=== PATIENT | male | born 1980 | race Caucasian/White ===

== ENCOUNTER 2021-05-09 06:28 | Emergency (ER) | payer BC ==
[2021-05-09 06:36] VITALS: BP 140/88; PULSE 86; RESP 18; TEMP 98.4
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
[2021-05-09] MEDS ORDERED: BACITRACIN OINT 1 EACH PACKET TOPICAL ONE (06:51)
[2021-05-09] MEDS ORDERED: DIPH,PERTUS(ACELL)TETVAC-LF 0.5 ML VIAL IM ONE (06:58)
[2021-05-09 22:58] LABS: Hepatitis B Surface Antibody NonReactive (Nonreactive); Hepatitis B Surface Antigen Nonreactive (Nonreactive); Hepatitis C IgG Antibody Nonreactive (Nonreactive)
[2021-05-12 01:57] LABS: HIV 2 AB Non-Reactive (Non-Reactive); HIV AB P24 Non-Reactive (Non-Reactive); HIV P24 AG Non-Reactive (Non-Reactive)
== END 2021-05-09 07:10 | disposition home or self-care (01) ==
LOC: EC 06:28
DX: S00.81XA Abrasion of other part of head, initial encounter (principal); S10.91XA Abrasion of unspecified part of neck, initial encounter; I10 Essential (primary) hypertension; Z79.899 Other long term (current) drug therapy; Z23 Encounter for immunization; Y04.8XXA Assault by other bodily force, initial encounter
CPT/HCPCS: 36415; 86706; 86803; 87340; 87390; 90471; 90715; 99284

== ENCOUNTER → 2022-10-27 | Day surgery (SDC) | payer BC ==
[2022-10-21 15:25] VITALS: BMI 38.7
--- NOTE | 2022-10-25 13:33 | P.HPOR ---
History of Present Illness H&P Date: 10/25/22 Chief Complaint: Right middle finger foreign body Subjective: This is a 42 year old male that presents today for initial evaluation regarding a 6 month history of a right middle finger lump on the pad of the tip of his finger. He denies any inciting event or injury. He states he can feel the lump at the tip of the finger and it's uncomfortable with any type of pressure. He denies any pain at rest and denies any other areas of issue. He works as a [employer] officer. Physical Examination: RUE: AIN/PIN/Radial/Ulnar/Median motor intact. Radial/Ulnar/Median SILT. 2+/4 Radial/Ulnar pulses palpated. 5/5 APB, 5/5 FDI. Negative Finkelsteins, negative CMC grind, negative Durkan's compression. 2mm firm round mass felt in tip of the right middle finger in the volar pulp with discomfort upon palpation. FDP/FDS intact. Imaging: X-Rays of the right middle finger reviewed from prior ED visit demonstrate no acute abnormality Impression: 1.) Right middle finger foreign body vs soft tissue mass. Plan: Diagnosis and treatment options were discussed with the patient. The prominence in the volar pulp of the middle finger is becoming an increasing annoyance and he would like to pursue surgery for right middle finger mass vs foreign body excision. Risks and benefits of surgery including bleeding, infection, damage to surrounding tissue, need for further surgery, residual numbness were discussed and the patient wished to go forward with surgery. The patient is agreeable with this plan. -Javier Cunningham DO Orthopedic Hand/Upper Extremity Surgeon Past Medical History Past Medical History: Hypertension Additional Past Medical History / Comment(s): herniated discs, current back pain- states he "put his back out" and currently on pain meds & prednisone., foreign body right middle finger tip. History of Any Multi-Drug Resistant Organisms: None Reported Past Surgical History: Orthopedic Surgery Additional Past Surgical History / Comment(s): anal fissure, elbow surgery. Past Anesthesia/Blood Transfusion Reactions: Previous Problems w/ Anesthesia, Postoperative Nausea & Vomiting (PONV) Past Psychological History: No Psychological Hx Reported Smoking Status: Never smoker Past Alcohol Use History: None Reported Past Drug Use History: None Reported Medications and Allergies Home Medications Medication Instructions Recorded Confirmed Type Baclofen 10 mg PO TID 03/16/23 03/16/23 History HYDROcodone/APAP 10-325MG [[place] 1 tab PO BID PRN 10/21/22 10/21/22 History 10-325] lisinopriL [Zestril] 20 mg PO DAILY 10/21/22 10/21/22 History polyethylene glycoL 3350 [Miralax] 1 dose PO DAILY PRN 10/21/22 10/21/22 History predniSONE 10 mg PO DAILY 10/21/22 10/21/22 History Allergies Allergy/AdvReac Type Severity Reaction Status Date / Time NSAIDS (Non-Steroidal Allergy Anaphylaxis Verified 10/21/22 14:55 Anti-Inflamma Penicillins Allergy Unknown Verified 10/21/22 14:55 Childhood Physical Examination Osteopathic Statement: *. No significant issues noted on an osteopathic structural exam other than those noted in the History and Physical/Consult.
[~2022-10-27] MED LIST: BUPIVACAINE (PF) 0.5% 30 ML VIAL SQ ONE; LACTATED RINGERS 1,000 ML IV ONE; LACTATED RINGERS 1,000 ML IV SCH; LIDOCAINE 1% (10MG/ML) FOR IV START INTRADERMA PRN; LIDOCAINE 1% INJ 10MG/ML (20 ML MDV) SQ ONE; LIDOCAINE 2% INJ 20 MG/ML (2 ML VIAL) ONE; MIDAZOLAM 2 MG/2 ML VIAL ONE; PROPOFOL 10 MG/ML 20 ML VIAL IV ONE; ceFAZolin 3 GM in SODIUM CHLORIDE 0.9% 100 ML IVPB PRN; fentaNYL (PF) 50 MCG/ML 2 ML AMP ONE
[2022-10-27 10:55] VITALS: TEMP 97.2
[2022-10-27 11:14] LABS: Glucose,Whole Blood 89 mg/dL (70-110)
[2022-10-27 12:23] VITALS: RESP 16
--- NOTE | 2022-10-27 12:24 | P.OP ---
Date of Procedure: 10/27/22 Preoperative Diagnosis: Right middle finger foreign body vs soft tissue mass Postoperative Diagnosis: Right middle finger soft tissue mass 3x3mm Procedure(s) Performed: Right middle finger soft tissue mass excision, subfascial 3x3mm Anesthesia: MAC Surgeon: Javier Cunningham Mental Health Technician #1: Nicola Sumner Estimated Blood Loss (ml): 0 Pathology: other (Right middle finger soft tissue mass) Condition: stable Disposition: PACU Description of Procedure: This is a 42 year old male who presents today for a right middle finger foreign body removal for a symptomatic foreign body that was causing pain and sensitivity at the tip of the finger. Risks and benefits of surgery were discussed with the patient including bleeding, damage to surrounding tissue, infection, need for further surgery as well as risks of anesthesia including pulmonary embolism and even and the patient wished to proceed with surgical intervention. The patient was seen in the pre-operative area by myself. Consent and H&P were completed and updated. The correct extremity was marked in the pre-operative area by myself and all other questions were answered. Operative Narrative: The patient was brought to the operating room by the department of anesthesia . They remained on the portable stretcher and a rolling hand table was brought to the side of the operative extremity. Pre-operative time out was performed indicating the correct patient, procedure and laterality. All in the room agreed. Pre-operative antibiotics were given prior to skin incision. The patient was then drifted off to sleep by the department of anesthesia. Digital block was performed with 5cc's of 0.5% Lidocaine and 1% lidocaine in a 50:50 mixture. A nonsterile tourniquet was then applied to the operative extremity and the right upper extremity was then prepped and draped in normal sterile fashion. The operative extremity was the exsanguinated with an esmarch bandage and the tourniquet was inflated to 250mmHg. Longitudinial incision was made over the volar tip of the middle finger over the area of the palpable mass. Blunt dissection was taken down through subcutaneous tissues. A 3x3mm multilobulated fibrous soft tissue mass was identified at the volar surface of the distal phalanx. This was sitting directly underneath a terminal branch of the radial digital nerve at the hyponychial fold, the nerve appeared irritated around this mass. The mass was carefully excised and sent for pathology while protecting the branch of the nerve. Closure was performed with 4-0 nylon suture. Sterile dressing consisting of adaptic, 4x4s and a coban was applied. Tourniquet was let down and the hand had immediate perfusion. The patient was then woken by the department of anesthesia and transferred to PACU in stable condition. Nicola SKY was present for the case to assist in major portions of the procedure. Javier Cunningham D.O. Orthopedic Hand/Upper Extremity Surgeon
[2022-10-27 12:59] VITALS: BP 116/78; PULSE 82
== END | disposition home or self-care (01) ==
LOC: OR 10:36
PROVIDERS: ATTEND Orthopaedic Surgery Hand Surgery
DX: S60.452A Superficial foreign body of right middle finger, initial encounter (principal); I10 Essential (primary) hypertension; Z87.09 Personal history of other diseases of the respiratory system; Z87.19 Personal history of other diseases of the digestive system; Z79.52 Long term (current) use of systemic steroids; Z79.899 Other long term (current) drug therapy; Z88.6 Allergy status to analgesic agent; Z88.0 Allergy status to penicillin; X58.XXXA Exposure to other specified factors, initial encounter
CPT/HCPCS: 26115; 88305; J2250; J2001 ×2; J3010; J2704

== ENCOUNTER 2023-08-04 10:33 | Observation (INO) | payer BC ==
[2023-08-04 12:37] LABS: Basophils # (A) 0.1 k/uL (0-0.2); Basophils % (A) 1 %; Eosinophils # (A) 0.4 k/uL (0-0.7); Eosinophils % (A) 5 %; HCT 52.6 % (39.0-53.0); HGB 18.2 gm/dL (13.0-17.5); Lymphocytes # (A) 1.8 k/uL (1.0-4.8); Lymphocytes % (A) 25 %; MCH 29.9 pg (25.0-35.0); MCHC 34.6 g/dL (31.0-37.0); MCV 86.2 fL (80.0-100.0); Mean Platelet Volume 9.5; Monocytes # (A) 0.5 k/uL (0-1.0); Monocytes % (A) 7 %; Neutrophils # (A) 4.4 k/uL (1.3-7.7); Neutrophils % (A) 61 %; Platelet Count 154 k/uL (150-450); RBC 6.09 m/uL (4.30-5.90); RDW 13.8 % (11.5-15.5); WBC 7.3 k/uL (3.8-10.6)
--- NOTE | 2023-08-04 12:43 | ED ---
Arrhythmia/Palpitations HPI - General Source: patient Mode of arrival: ambulatory Limitations: no limitations <Dago Harrison - Last Filed: 08/04/23 12:44> <Nikhil Victor - Last Filed: 08/04/23 19:45> - General Chief Complaint: Arrhythmia/Palpitations Stated Complaint: Palpitations Time Seen by Provider: 08/04/23 12:34 - History of Present Illness Initial Comments: 43-year-old male with a past medical history significant for hypertension presenting to the ED with a chief complaint of palpitations. Patient states he returned from work this morning around 7 AM when he went to lay down he started to experience palpitations. Reports that at onset initially felt short of breath, lightheaded, nauseous, and sweaty and noted this sensation only lasted for a few minutes reports ongoing palpitations. Currently denies chest pain or shortness of breath. (Dago Harrison) - Related Data Home Medications Medication Instructions Recorded Confirmed lisinopriL [Zestril] 20 mg PO DAILY 10/21/22 08/04/23 Acetaminophen Tab [Tylenol Tab] 1,000 mg PO Q6HR PRN 08/04/23 08/04/23 Gabapentin [Neurontin] 300 mg PO BID PRN 08/04/23 08/04/23 Turmeric Root Extract [Turmeric 500 mg PO DAILY PRN 08/04/23 08/04/23 Curcumin] Allergies Allergy/AdvReac Type Severity Reaction Status Date / Time NSAIDS (Non-Steroidal Allergy Anaphylaxis Verified 08/04/23 14:27 Anti-Inflamma Penicillins Allergy Unknown Verified 08/04/23 14:27 Childhood Review of Systems ROS Other: All systems not noted in ROS Statement are negative. <Dago Harrison - Last Filed: 08/04/23 12:44> ROS Other: All systems not noted in ROS Statement are negative. <Nikhil Victor - Last Filed: 08/04/23 19:45> ROS Statement: Those systems with pertinent positive or pertinent negative responses have been documented in the HPI. Past Medical History Past Medical History: Hypertension Additional Past Medical History / Comment(s): back pain History of Any Multi-Drug Resistant Organisms: None Reported Past Surgical History: Orthopedic Surgery Additional Past Surgical History / Comment(s): anal fissure elbow Past Anesthesia/Blood Transfusion Reactions: Previous Problems w/ Anesthesia, Postoperative Nausea & Vomiting (PONV) Past Psychological History: No Psychological Hx Reported Smoking Status: Never smoker Past Alcohol Use History: Rare <Dago Harrison - Last Filed: 08/04/23 12:44> General Exam Limitations: no limitations <Dago Harrison - Last Filed: 08/04/23 12:44> General appearance: alert, in no apparent distress Head exam: Present: atraumatic, normocephalic Eye exam: Present: normal appearance, PERRL ENT exam: Present: normal exam Neck exam: Present: normal inspection. Absent: tenderness, meningismus Respiratory exam: Present: normal lung sounds bilaterally. Absent: respiratory distress Cardiovascular Exam: Present: tachycardia, irregular rhythm GI/Abdominal exam: Present: soft. Absent: distended, tenderness Extremities exam: Present: normal inspection, normal capillary refill. Absent: pedal edema, calf tenderness Neurological exam: Present: alert, oriented X3 Psychiatric exam: Present: normal affect, normal mood Skin exam: Present: warm, dry, intact. Absent: cyanosis, diaphoretic <Nikhil Victor Deacon - Last Filed: 08/04/23 19:45> - General Exam Comments Initial Comments: Physical Exam Vital signs reviewed General: Well-appearing, nontoxic, no acute distress. Head: Normocephalic, atraumatic Eyes: PERRLA, EOMI ENT: Airway patent Chest: Nonlabored breathing. CV: Tachycardia Skin: No visual rash, normal skin tone Neuro: Alert and oriented 3 Musculoskeletal: No gross abnormalities (Dago Harrison) Course Vital Signs 08/04/23 08/04/23 08/04/23 11:25 13:30 14:15 Temperature 98 F Pulse Rate 72 168 H 120 H Respiratory 18 18 18 Rate Blood Pressure 135/90 114/98 114/98 O2 Sat by Pulse 98 98 Oximetry 08/04/23 08/04/23 08/04/23 15:00 16:00 17:00 Temperature Pulse Rate 126 H 112 H 112 H Respiratory 18 18 20 Rate Blood Pressure 111/88 116/86 107/64 O2 Sat by Pulse 98 98 98 Oximetry 08/04/23 08/04/23 18:00 19:31 Temperature Pulse Rate 112 H 82 Respiratory 20 19 Rate Blood Pressure 100/74 99/72 O2 Sat by Pulse 98 Oximetry Medical Decision Making - Lab Data Result diagrams: 08/04/23 11:29 <Dago Harrison - Last Filed: 08/04/23 12:44> - Lab Data Result diagrams: 08/04/23 11:29 08/04/23 11:29 <Nikhil Victor - Last Filed: 08/04/23 19:45> - Medical Decision Making Quicknote portion performed. Signed Dago Harrison PA-C (Dago Harrison) Was pt. sent in by a medical professional or institution ([facility], [employer] [employer], urgent care, hospital, or group home...) When possible be specific @ -No Did you speak to anyone other than the patient for history (EMS, parent, family, police, friend...)? What history was obtained from this source @ -No Did you review nursing and triage notes (agree or disagree)? Why? @ -I reviewed and agree with nursing and triage notes Were old charts reviewed (outside hosp., previous admission, EMS record, old EKG, old radiological studies, urgent care reports/EKG's, group home records)? Report findings @ -No old charts were reviewed Differential Diagnosis (chest pain, altered mental status, abdominal pain women, abdominal pain men, vaginal bleeding, weakness, fever, dyspnea, syncope, headache, dizziness, GI bleed, back pain, seizure, CVA, palpatations, mental health, musculoskeletal)? @ Differential Palpitations Ventricular arrhythmias, atrial arrhythmias, myocardial infarction, anemia, thy rotoxicosis, electrolyte imbalance, hypokalemia, pulmonary embolism, pulmonary disease, drugs, alcohol, anxiety, stress.... This is not meant to be an all-inclusive list. EKG interpreted by me (3pts min.). @ -Atrial fibrillation with RVR rate of 161 QRS duration 94, QTC 350, no ST segment elevation. Repeat EKG at 1941 showing sinus rhythm rate of 73, CO inter laura 146, QRS duration 108, QTC [address] segment elevation. X-rays interpreted by me (1pt min.). @ -Chest x-ray negative for acute cardiopulmonary findings CT interpreted by me (1pt min.). @ -None done U/S interpreted by me (1pt. min.). @ -None done What testing was considered but not performed or refused? (CT, X-rays, U/S, labs)? Why? @ -None What meds were considered but not given or refused? Why? @ -None Did you discuss the management of the patient with other professionals (professionals i.e. , PA, [employer]ER, lab, RT, psych nurse, nursing home social worker, oyster harvester, teacher, catapult and arresting gear officer, casey saw operator)? Give summary @ -Sound physician group Was smoking cessation discussed for >3mins.? @ -No Was critical care preformed (if so, how long)? @ -yes 35 min Were there social determinants of health that impacted care today? How? (Homelessness, low income, unemployed, alcoholism, drug addiction, transportation, low edu. Level, literacy, decrease access to med. care, longterm, rehab)? @ -No Was there de-escalation of care discussed even if they declined (Discuss DNR or withdrawal of care, Hospice)? DNR status @ -No What co-morbidities impacted this encounter? (DM, HTN, Smoking, COPD, CAD, Cancer, CVA, ARF, Chemo, Hep., AIDS, mental health diagnosis, sleep apnea, morbid obesity)? @ -HTN Was patient admitted / discharged? Hospital course, mention meds given and route, prescriptions, significant lab abnormalities, going to OR and other pertinent info. @ 43-year-old male with new onset atrial fibrillation with RVR. Only symptom only of palpitation. Rate 160-170 upon arrival. Normal laboratory testing including CBC, CMP, troponin. TSH is pending. Patient started on Cardizem with significant improvement and rate in the emergency department. He will be admitted for telemetry, rate control, cardiology consultation. Echo has been ordered. Undiagnosed new problem with uncertain prognosis? @ -No Drug Therapy requiring intensive monitoring for toxicity (Heparin, Nitro, Insulin, Cardizem)? @ -No Were any procedures done? @ -No Diagnosis/symptom? @ New-onset atrial fibrillation with RVR Acute, or Chronic, or Acute on Chronic? @ -acute Uncomplicated (without systemic symptoms) or Complicated (systemic symptoms)? @ Complicated Side effects of treatment? @ -No Exacerbation, Progression, or Severe Exacerbation? @ -No Poses a threat to life or bodily function? How? (Chest pain, USA, CO, pneumonia, PE, COPD, DKA, ARF, appy, cholecystitis, CVA, Diverticulitis, Homicidal, Suicidal, threat to staff... and all critical care pts) @ -yes, arrhythmia (PedritoheverNikhil) - Lab Data Lab Results 08/04/23 08/04/23 08/04/23 Range/Units 11:29 11:29 11:29 WBC 7.3 (3.8-10.6) k/uL RBC 6.09 H (4.30-5.90) m/uL Hgb 18.2 H (13.0-17.5) gm/dL Hct 52.6 (39.0-53.0) % MCV 86.2 (80.0-100.0) fL MCH 29.9 (25.0-35.0) pg MCHC 34.6 (31.0-37.0) g/dL RDW 13.8 (11.5-15.5) % Plt Count 154 (150-450) k/uL MPV 9.5 Neutrophils % 61 % Lymphocytes % 25 % Monocytes % 7 % Eosinophils % 5 % Basophils % 1 % Neutrophils # 4.4 (1.3-7.7) k/uL Lymphocytes # 1.8 (1.0-4.8) k/uL Monocytes # 0.5 (0-1.0) k/uL Eosinophils # 0.4 (0-0.7) k/uL Basophils # 0.1 (0-0.2) k/uL PT 11.1 (10.0-12.5) sec INR 1.0 (<1.2) APTT 26.2 (22.0-30.0) sec Sodium 141 (137-145) mmol/L Potassium 4.1 (3.5-5.1) mmol/L Chloride 107 (98-107) mmol/L Carbon Dioxide 22 (22-30) mmol/L Anion Gap 12 mmol/L BUN 15 (9-20) mg/dL Creatinine 0.74 (0.66-1.25) mg/dL Est GFR (CKD-EPI)AfAm >90 (>60 ml/min/1.73 sqM) Est GFR (CKD-EPI)NonAf >90 (>60 ml/min/1.73 sqM) Glucose 104 H (74-99) mg/dL Calcium 9.2 (8.4-10.2) mg/dL Magnesium 1.9 (1.6-2.3) mg/dL Total Bilirubin 1.0 (0.2-1.3) mg/dL AST 30 (17-59) U/L ALT 44 (4-49) U/L Alkaline Phosphatase 82 (38-126) U/L Troponin I (0.000-0.034) ng/mL Total Protein 6.9 (6.3-8.2) g/dL Albumin 4.1 (3.5-5.0) g/dL TSH (0.465-4.680) mIU/L 08/04/23 08/04/23 Range/Units 11:29 11:29 WBC (3.8-10.6) k/uL RBC (4.30-5.90) m/uL Hgb (13.0-17.5) gm/dL Hct (39.0-53.0) % MCV (80.0-100.0) fL MCH (25.0-35.0) pg MCHC (31.0-37.0) g/dL RDW (11.5-15.5) % Plt Count (150-450) k/uL MPV Neutrophils % % Lymphocytes % % Monocytes % % Eosinophils % % Basophils % % Neutrophils # (1.3-7.7) k/uL Lymphocytes # (1.0-4.8) k/uL Monocytes # (0-1.0) k/uL Eosinophils # (0-0.7) k/uL Basophils # (0-0.2) k/uL PT (10.0-12.5) sec INR (<1.2) APTT (22.0-30.0) sec Sodium (137-145) mmol/L Potassium (3.5-5.1) mmol/L Chloride (98-107) mmol/L Carbon Dioxide (22-30) mmol/L Anion Gap mmol/L BUN (9-20) mg/dL Creatinine (0.66-1.25) mg/dL Est GFR (CKD-EPI)AfAm (>60 ml/min/1.73 sqM) Est GFR (CKD-EPI)NonAf (>60 ml/min/1.73 sqM) Glucose (74-99) mg/dL Calcium (8.4-10.2) mg/dL Magnesium (1.6-2.3) mg/dL Total Bilirubin (0.2-1.3) mg/dL AST (17-59) U/L ALT (4-49) U/L Alkaline Phosphatase (38-126) U/L Troponin I <0.012 (0.000-0.034) ng/mL Total Protein (6.3-8.2) g/dL Albumin (3.5-5.0) g/dL TSH 3.980 (0.465-4.680) mIU/L Critical Care Time Critical Care Time: Yes Total Critical Care Time: 35 <Nikhil Victor - Last Filed: 08/04/23 19:45> Disposition <Dago Harrison - Last Filed: 08/04/23 12:44> Is patient prescribed a controlled substance at d/c from ED?: No Time of Disposition: 14:19 <Nikhil Victor - Last Filed: 08/04/23 19:45> Clinical Impression: Atrial fibrillation, Atrial fibrillation with RVR Disposition: ADMITTED IP TO THIS HOSP Condition: Stable
[2023-08-04 12:47] LABS: Partial Thromboplastin Time 26.2 sec (22.0-30.0); Prothrombin Time 11.1 sec (10.0-12.5)
[2023-08-04 12:49] LABS: ALT 44 U/L (4-49); AST 30 U/L (17-59); African American GFR (CKD) >90 (>60 ml/min/1.73 sqM); Albumin 4.1 g/dL (3.5-5.0); Alkaline Phosphatase 82 U/L (38-126); Anion Gap 12 mmol/L; Blood Urea Nitrogen 15 mg/dL (9-20); Calcium 9.2 mg/dL (8.4-10.2); Carbon Dioxide 22 mmol/L (22-30); Chloride 107 mmol/L (98-107); Glucose 104 mg/dL (74-99); Magnesium 1.9 mg/dL (1.6-2.3); Non-African American GFR(CKD) >90 (>60 ml/min/1.73 sqM); Potassium 4.1 mmol/L (3.5-5.1); Sodium 141 mmol/L (137-145); Total Protein 6.9 g/dL (6.3-8.2)
[2023-08-04] MEDS ORDERED: DILTIAZEM DRIP BOLUS FROM BAG 1 MG SOLN IV ONE (12:59)
[2023-08-04] MEDS ORDERED: DILTIAZEM 125 MG in SODIUM CHLORIDE 0.9% 100 ML IV SCH (13:00)
[2023-08-04] MEDS ORDERED: NALOXONE 0.4 MG/ML 1 ML VIAL IV PRN (13:36)
[2023-08-04] MEDS ORDERED: ACETAMINOPHEN TAB 325 MG TAB PO PRN (13:36)
[2023-08-04] MEDS ORDERED: SODIUM CHLORIDE 0.9% 1,000 ML IV ONE (13:36)
--- NOTE | 2023-08-04 14:16 | XR ---
EXAMINATION TYPE: XR chest 2V DATE OF EXAM: 08/04/2023 COMPARISON: 04/10/2016 HISTORY: 43-year-old male just read, chest pain TECHNIQUE: PA and lateral views FINDINGS: The cardiomediastinal silhouette, aorta, and pulmonary vasculature are within normal limits. Lungs an d pleural spaces are clear. IMPRESSION: No acute cardiopulmonary process.
[2023-08-04] MEDS ORDERED: HEPARIN SODIUM 1,000 UN/ML (10ML VL) IV ONE (15:14)
[2023-08-04] MEDS ORDERED: HEPARIN SODIUM 1,000 UN/ML (10ML VL) IV PRN (15:14)
[2023-08-04] MEDS ORDERED: HEPARIN SOD,PORK IN 0.45% NACL 25,000 UNIT in 0.45% NACL 1 250ML.BAG IV SCH (15:15)
[2023-08-04] MEDS ORDERED: GABAPENTIN 300 MG CAP PO PRN (15:16)
--- NOTE | 2023-08-04 15:18 | P.HPIM ---
History of Present Illness H&P Date: 08/04/23 History of Presenting Illness: Patient is a very pleasant 43-year-old male with a past medical history of hypertension. He presented to the emergency department with a chief complaint of palpitations. Patient reports that he works nights and about 7:30 this morning he laid down to try to sleep but Feeling palpitations. Patient reports he tried to ignore this and finally did fall asleep but woke up around 10 AM again feeling severe palpitations accompanied by shortness of breath, dizziness, nausea, and diaphoresis. Patient reports he called his as he knew something was was not right and came to the emergency department per her instructions. Currently patient denies having any dizziness, lightheadedness, chest pain, shortness of breath, or experiencing any numb ness/tingling/weakness/swelling in his extremities. Patient does report pain and left lower extremity femoral/groin region over the past few days. He denies any recent infections or exposure to known ill contacts. He denies any history of atrial fibrillation or previous cardiac history. He underwent full evaluation in the emergency department. Vital signs in the emergency department show heart rate elevated as high as 168 bpm, blood pressure 135/90, respiratory rate 18, temp 98.0F, SpO2 98% on room air. An EKG was completed showing atrial fibrillation with RVR at 161 bpm with T-wave inversion in inferior leads 2 and aVF. Chest x-ray completed negative for acute cardiopulmonary process. Labs completed and reviewed. CBC showing slightly elevated hemoglobin of 18.2 otherwise normal findings. Coagulation profile normal findings. BMP was unremarkable. Magnesium normal findings at 1.9. Liver profile normal findings. Troponin negative at less than 0.012. And TSH normal at 3.90. Patient was given Cardizem bolus and initiated on Cardizem infusion. He was admitted under our services with consultation to cardiology. Review of systems: Pertinent positives and negatives as discussed in HPI, a complete review of systems was performed and all other systems are negative. Physical exam: Vital signs reviewed and stable. General: Nontoxic, no distress and appears stated age. Derm: Skin warm and dry, normal coloration for ethnicity. Head: Atraumatic, normocephalic and symmetric. Eyes: EOMs intact, no lid lag, and anicteric sclera Mouth: no lip lesions, mucus membranes moist Cardiovascular: Irregularly irregular, no murmur, positive posterior tibial pulses bilaterally, and cap refill < 2 seconds. Lungs: Respirations even, regular, and unlabored on room air. Lungs CTA bilaterally, no rhonchi, no rales, no wheezing, and no accessory muscle usage. Abdominal: soft, nontender to palpation, no guarding, no appreciable organomegaly Ext: ROM intact. No gross muscle atrophy, no edema, no contractures Neuro: Speech clear, face symmetrical and CN II-XII grossly intact with no noted focal neuro deficits Psych: Alert and oriented to person, place, time, and situation. Appropriate and pleasant affect. Assessment and Plan of Care: New-onset Atrial fibrillation with RVR Hypertension Left lower extremity pain, rule out DVT -Cardiology consulted, appreciate further recommendations -Continue Cardizem infusion and start -Patient started on low intensity Heparin infusion. We will monitor PTT every 6 hours for goal therapeutic range between 44 and 79 seconds. -Patient to remain on continuous Telemetry monitoring -Lipid profile with a.m. labs. -Echocardiogram to be completed to evaluate structure and function of heart -Left lower extremity Doppler secondary to patient's reports of pain along rule out DVT -[id number] score 1, was started on heparin infusion and we will defer long-term anticoagulation decision to cardiology. Data and imaging reviewed: As stated above in HPI. CODE STATUS: Full code DVT prophylaxis: Heparin Anticipated discharge date: Clinical course to determine Anticipated discharge place: Clinical course to determine Patient was seen independently by Nurse Practitioner. This document was prepared using [employer] dictation software. Please allow for errors in set decorator while rare they do occur Past Medical History Past Medical History: Hypertension Additional Past Medical History / Comment(s): back pain History of Any Multi-Drug Resistant Organisms: None Reported Past Surgical History: Orthopedic Surgery Additional Past Surgical History / Comment(s): anal fissure elbow Past Anesthesia/Blood Transfusion Reactions: Previous Problems w/ Anesthesia, Postoperative Nausea & Vomiting (PONV) Past Psychological History: No Psychological Hx Reported Smoking Status: Never smoker Past Alcohol Use History: Rare Medications and Allergies Home Medications Medication Instructions Recorded Confirmed Type lisinopriL [Zestril] 20 mg PO DAILY 10/21/22 08/04/23 History Acetaminophen Tab [Tylenol Tab] 1,000 mg PO Q6HR PRN 08/04/23 08/04/23 History Gabapentin [Neurontin] 300 mg PO BID PRN 08/04/23 08/04/23 History Turmeric Root Extract [Turmeric 500 mg PO DAILY PRN 08/04/23 08/04/23 History Curcumin] Allergies Allergy/AdvReac Type Severity Reaction Status Date / Time NSAIDS (Non-Steroidal Allergy Anaphylaxis Verified 08/04/23 14:27 Anti-Inflamma Penicillins Allergy Unknown Verified 08/04/23 14:27 Childhood Physical Exam Vitals: Vital Signs Temp Pulse Resp BP Pulse Ox 08/04/23 14:15 109 H 113/89 97 08/04/23 13:30 168 H 18 114/98 08/04/23 11:25 98 F 72 18 135/90 98 Intake and Output 08/04/23 08/04/23 08/04/23 06:59 14:59 22:59 Other: Weight 127.006 kg Results CBC & Chem 7: 08/04/23 11:29 08/04/23 11:29 Labs: Abnormal Lab Results - Last 24 Hours (Table) 08/04/23 08/04/23 Range/Units 11:29 11:29 RBC 6.09 H (4.30-5.90) m/uL Hgb 18.2 H (13.0-17.5) gm/dL Glucose 104 H (74-99) mg/dL
[2023-08-04] MEDS: METOPROLOL TARTRATE 25 MG TAB PO SCH (20:11)
--- NOTE | 2023-08-04 20:26 | US ---
EXAMINATION TYPE: US venous doppler duplex LE LT DATE OF EXAM: 08/04/2023 6:34 PM COMPARISON: NONE CLINICAL INDICATION: Male, 43 years old with history of rule out DVT; Lt upper thigh pain. No hx of D VT. Physician placed him on blood thinners today due to Afib SIDE PERFORMED: Left TECHNIQUE: The lower extremity deep venous system is examined utilizing real time linear array sonog jaimee with graded compression, doppler sonography and color-flow sonography. VESSELS IMAGED: Common Femoral Vein Deep Femoral Vein Greater Saphenous Vein * Femoral Vein Popliteal Vein Small Saphenous Vein * Proximal Calf Veins (* superficial vessels) Left Leg: No evidence for DVT IMPRESSION: No evidence for DVT within the left lower extremity imaged from the groin to the upper calf.
[2023-08-05 06:11] LABS: INR 1.1 (<1.2); Prothrombin Time 11.8 sec (10.0-12.5)
[2023-08-05] MEDS: METOPROLOL TARTRATE 25 MG TAB PO SCH (08:48)
[2023-08-05] MEDS ORDERED: APIXABAN 5 MG TAB PO SCH (09:00)
[2023-08-05 09:06] VITALS: RESP 20
--- NOTE | 2023-08-05 10:38 | P.CRDCN ---
History of Present Illness History of present illness: HISTORY OF PRESENT ILLNESS: This is a 43-year-old male with a past medical history significant for hypertension. 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 We have been asked to see the patient in consultation for new onset A. fib with RVR. Patient examined at the bedside. Patient states yesterday morning after he got home from work and has been a shift he began to have palpitations. He states that he went to bed for a couple hours and when he woke up he continued to have palpitations so he decided to come to the emergency room for further evaluation. He reports feeling mildly lightheaded and having some mild chest pressure at that time. The patient was found to be in A. fib with RVR. The patient denies a history of atrial fibrillation. The patient was started on IV heparin and IV Cardizem. He since converted to sinus mechanism and is maintaining sinus mechanism at the time of examination. The patient states he has had palpitations once in a while at home but they never lasted very long to concern him to get evaluated. Patient is a nonsmoker. He denies any alcohol use. Denies any drug use including marijuana. He denies any family history of coronary artery disease. TSH was checked and within normal limits. * EKG reveals atrial fibrillation with RVR * Chest xray negative for acute process * Laboratory data: Troponin negative 3. TSH 3.980. * Current home cardiac medications include lisinopril 20 mg daily REVIEW OF SYSTEMS: At the time of my exam: CONSTITUTIONAL: Denies fever or chills. HEENT: Denies blurred vision, vision changes, or eye pain. Denies hemoptysis CARDIOVASCULAR: Denies chest pain. Denies orthopnea. Denies PND. Denies palpitations RESPIRATORY: Denies shortness of breath. GASTROINTESTINAL: Denies abdominal pain. Denies nausea or vomiting. HEMATOLOGIC: Denies bleeding disorders. GENITOURINARY: Denies any blood in urine. SKIN: Denies pruitis. Denies rash. PHYSICAL EXAM: VITAL SIGNS: Reviewed. GENERAL: Well-developed in no acute distress. HEENT: Head is normocephalic. Pupils are equal, round. Sclerae anicteric. Mucous membranes of the mouth are moist. Neck supple. No JVD or thyromegaly LUNGS: Respirations even and unlabored. Lungs essentially clear to auscultation bilaterally. HEART: Regular rate and rhythm. S1 and S2 heard. ABDOMEN: Soft. Nondistended. Nontender. EXTREMITIES: Normal range of motion. No clubbing or cyanosis. Peripheral p ulses intact. No lower extremity edema NEUROLOGIC: Awake and alert. Oriented x 3. ASSESSMENT: Palpitations New-onset atrial fibrillation with RVR, currently maintaining sinus mechanism Hypertension PLAN: Obtain 2-D echo to assess cardiac structure and function Patient has been started on metoprolol tartrate 25 mg twice a day Begin Eliquis 5 mg twice a day Continue telemetry monitoring If 2-D echo does not reveal any significant abnormalities, the patient may be discharged home this afternoon from a cardiac standpoint and follow up on an outpatient basis with Dr. Nieves Nurse practitioner note has been reviewed by physician. Signing provider agrees with the documented findings, assessment, and plan of care. Past Medical History Past Medical History: Hypertension Additional Past Medical History / Comment(s): back pain History of Any Multi-Drug Resistant Organisms: None Reported Past Surgical History: Orthopedic Surgery Additional Past Surgical History / Comment(s): anal fissure elbow Past Anesthesia/Blood Transfusion Reactions: Previous Problems w/ Anesthesia, Postoperative Nausea & Vomiting (PONV) Past Psychological History: No Psychological Hx Reported Smoking Status: Never smoker Past Alcohol Use History: Rare Past Drug Use History: None Reported Medications and Allergies Home Medications Medication Instructions Recorded Confirmed Type lisinopriL [Zestril] 20 mg PO DAILY 10/21/22 08/04/23 History Acetaminophen Tab [Tylenol Tab] 1,000 mg PO Q6HR PRN 08/04/23 08/04/23 History Gabapentin [Neurontin] 300 mg PO BID PRN 08/04/23 08/04/23 History Turmeric Root Extract [Turmeric 500 mg PO DAILY PRN 08/04/23 08/04/23 History Curcumin] Allergies Allergy/AdvReac Type Severity Reaction Status Date / Time NSAIDS (Non-Steroidal Allergy Anaphylaxis Verified 08/04/23 14:27 Anti-Inflamma Penicillins Allergy Unknown Verified 08/04/23 14:27 Childhood Physical Exam Vitals: Vital Signs Temp Pulse Pulse Resp BP BP Pulse Ox 08/05/23 04:00 97.8 F 80 18 119/66 96 08/05/23 01:53 78 16 08/04/23 23:55 97.6 F 78 16 126/83 96 08/04/23 19:31 82 19 99/72 08/04/23 18:00 112 H 20 100/74 98 08/04/23 17:00 112 H 20 107/64 98 08/04/23 16:00 112 H 18 116/86 98 08/04/23 15:00 126 H 18 111/88 98 08/04/23 14:15 120 H 18 114/98 98 08/04/23 13:30 168 H 18 114/98 08/04/23 11:25 98 F 72 18 135/90 98 Intake and Output 08/04/23 08/05/23 08/05/23 22:59 06:59 14:59 Intake Total 101.166 113.583 Balance 101.166 113.583 Intake: IV 10 0.9 10 Intake, IV Titration 101.166 103.583 Amount Diltiazem 125 mg In 36.333 Sodium Chloride 0.9% 100 ml @ 5 MG/HR 5 mls/hr IV .Q24H [facility] Rx#:[id number] Heparin Sod,Pork in 0.45% 64.833 103.583 NaCl 25,000 unit In 0.45 % NaCl 1 250ml.bag @ 7. 874 UNITS/KG/HR 10 mls/hr IV .Q24H [facility] Rx#: [id number] Other: Voiding Method Toilet # Voids 1 Weight 127.006 kg Results 08/04/23 11:29 08/04/23 11:29 Cardiac Enzymes 08/04/23 08/04/23 08/04/23 Range/Units 11:29 11:29 15:09 AST 30 (17-59) U/L Troponin I <0.012 <0.012 (0.000-0.034) ng/mL 08/04/23 Range/Units 17:47 AST (17-59) U/L Troponin I <0.012 (0.000-0.034) ng/mL Coagulation 08/04/23 08/04/23 08/05/23 Range/Units 11:29 21:09 04:13 PT 11.1 11.8 (10.0-12.5) sec APTT 26.2 29.3 (22.0-30.0) sec 08/05/23 Range/Units 04:13 PT (10.0-12.5) sec APTT 42.7 H (22.0-30.0) sec CBC 08/04/23 Range/Units 11:29 WBC 7.3 (3.8-10.6) k/uL RBC 6.09 H (4.30-5.90) m/uL Hgb 18.2 H (13.0-17.5) gm/dL Hct 52.6 (39.0-53.0) % Plt Count 154 (150-450) k/uL Comprehensive Metabolic Panel 08/04/23 Range/Units 11:29 Sodium 141 (137-145) mmol/L Potassium 4.1 (3.5-5.1) mmol/L Chloride 107 (98-107) mmol/L Carbon Dioxide 22 (22-30) mmol/L BUN 15 (9-20) mg/dL Creatinine 0.74 (0.66-1.25) mg/dL Glucose 104 H (74-99) mg/dL Calcium 9.2 (8.4-10.2) mg/dL AST 30 (17-59) U/L ALT 44 (4-49) U/L Alkaline Phosphatase 82 (38-126) U/L Total Protein 6.9 (6.3-8.2) g/dL Albumin 4.1 (3.5-5.0) g/dL Current Medications Generic Name Dose Route Start Last Admin Trade Name Freq PRN Reason Stop Dose Admin Acetaminophen 650 mg 08/04/23 13:36 Acetaminophen Tab 325 Mg Tab PO Q6HR PRN Mild Pain or Fever > 100.5 Gabapentin 300 mg 08/04/23 15:16 Gabapentin 300 Mg Cap PO BID PRN Pain Heparin Sodium (Porcine) 0 unit 08/04/23 15:14 08/04/23 22:36 Heparin Sodium 1,000 Un/Ml (10ml Vl) IV 4,000 unit PER PROTOCOL PRN Administration Low PTT Protocol Heparin Sodium/Sodium Chloride 250 mls @ 10 mls/hr 08/04/23 15:15 08/05/23 06:01 25,000 unit/ Sodium Chloride IV 12.874 units/kg/hr .Q24H [facility] 16.351 mls/hr Titration Protocol 7.874 UNITS/KG/HR Metoprolol Tartrate 25 mg 08/04/23 21:00 08/04/23 20:11 Metoprolol Tartrate 25 Mg Tab PO 25 mg BID [facility] Administration Naloxone HCl 0.2 mg 08/04/23 13:36 Naloxone 0.4 Mg/Ml 1 Ml Vial IV Q2M PRN Opioid Reversal Intake and Output 08/04/23 08/05/23 08/05/23 22:59 06:59 14:59 Intake Total 101.166 113.583 Balance 101.166 113.583 Intake: IV 10 0.9 10 Intake, IV Titration 101.166 103.583 Amount Diltiazem 125 mg In 36.333 Sodium Chloride 0.9% 100 ml @ 5 MG/HR 5 mls/hr IV .Q24H [facility] Rx#:[id number] Heparin Sod,Pork in 0.45% 64.833 103.583 NaCl 25,000 unit In 0.45 % NaCl 1 250ml.bag @ 7. 874 UNITS/KG/HR 10 mls/hr IV .Q24H [facility] Rx#: [id number] Other: Voiding Method Toilet # Voids 1 Weight 127.006 kg 08/04/23 11:29 08/04/23 11:29
--- NOTE | 2023-08-05 11:30 | CA ---
Transthoracic Echo Report Name: Uriel Becker Age: 43 Gender: M : 1980 Exam Date: 08/04/2023 14:37 Exam Location: [place] [facility] Ht (in): 70 Wt (lb): 280 Ordering Physician: Nikhil Victor MD Attending/Referring Phys: [id number], Valente Reference Data Expert Brenda Sandoval [facility] Procedure CPT: Indications: new onset a-fib Cardiac Hx: Technical Quality: Fair Contrast 1: Total Dose (mL): Contrast 2: Total Dose (mL): MEASUREMENTS (Male / Female) Normal Values 2D ECHO LV Diastolic Diameter PLAX 4.9 cm 4.2 - 5.9 / 3.9 - 5.3 cm LV Systolic Diameter PLAX 4.2 cm IVS Diastolic Thickness 1.2 cm 0.6 - 1.0 / 0.6 - 0.9 cm LVPW Diastolic Thickness 1.2 cm 0.6 - 1.0 / 0.6 - 0.9 cm LV Relative Wall Thickness 0.5 LVOT Diameter 2.0 cm LV Diastolic Volume MOD BP 70.3 cm??? 67 - 155 / 56 - 104 cm??? LV Systolic Volume MOD BP 31.5 cm??? 22 - 58 / 19 - 49 cm??? LV Ejection Fraction MOD BP 55.2 % >= 55 % LV Cardiac Index MOD BP 1515.2 cm???/min???m??? LV Diastolic Volume MOD 4C 76.1 cm??? LV Systolic Volume MOD 4C 35.1 cm??? LV Ejection Fraction MOD 4C 53.8 % LV Cardiac Index MOD 4C 1597.9 cm???/min???m??? LV Diastolic Length 4C 7.8 cm LV Systolic Length 4C 7.0 cm LV Diastolic Volume MOD 2C 64.2 cm??? LV Systolic Volume MOD 2C 27.9 cm??? LV Ejection Fraction MOD 2C 56.5 % LV Cardiac Index MOD 2C 1415.9 cm???/min???m??? LV Diastolic Length 2C 8.0 cm LV Systolic Length 2C 7.1 cm Ascending Aorta Diameter 3.2 cm M-MODE Aortic Root Diameter MM 3.7 cm LA Systolic Diameter MM 3.9 cm LA Ao Ratio MM 1.0 AV Cusp Separation MM 2.4 cm DOPPLER AV Peak Velocity 101.0 cm/s AV Peak Gradient 4.1 mmHg AV Mean Velocity 80.8 cm/s AV Mean Gradient 2.7 mmHg AV Velocity Time Integral 19.4 cm LVOT Peak Velocity 87.2 cm/s LVOT Peak Gradient 3.0 mmHg LVOT Velocity Time Integral 14.1 cm LVOT Stroke Volume 44.1 cm??? LVOT Stroke Volume Index 18.3 ml/m??? LVOT Cardiac Index 1723.4 cm???/min???m??? AV Area Cont Eq vti 2.3 cm??? AV Area Cont Eq pk 2.7 cm??? Mitral E Point Velocity 73.6 cm/s MV Deceleration Time 103.5 ms Right Atrial Pressure 8.0 mmHg FINDINGS Left Ventricle Mildly increased left ventricular wall thickness. Left ventricular cavity size normal. Low normal left ventricular systolic function with no obvious regional wall motion abnormalities. Left ventricular ejection fraction is estimated at 50-55%. Right Ventricle Severe right ventricular dilatation. Right Atrium Normal right atrial size. Left Atrium Normal left atrial size. Mitral Valve Structurally normal mitral valve. No mitral regurgitation. Aortic Valve Trileaflet aortic valve. No aortic valve stenosis or regurgitation. Tricuspid Valve Structurally normal tricuspid valve. No tricuspid regurgitation. Pulmonic Valve Pulmonic valve not well visualized. Pericardium No pericardial effusion. Aorta Normal size aortic root and proximal ascending aorta. CONCLUSIONS Left ventricular ejection fraction 5055% Mildly increased left ventricular wall thickness No mitral regurgitation No pericardial effusion Previewed by: Dr. Quique Shah DO (Electronically Signed) Final Date: 05 August 2023 11:29
[2023-08-05 11:58] VITALS: BP 125/77; PULSE 77; TEMP 97.3
--- NOTE | 2023-08-05 12:41 | P.DS ---
Providers Date of admission: 08/04/23 13:36 Expected date of discharge: 08/05/23 Attending physician: Monserrat Ortega DO Consults: 08/04/23 13:36 Consult Physician Routine Consulting Provider: Leon Nieves Consult Reason/Comments: New onset A-fib with RVR Do you want consulting provider notified?: Yes Primary care physician: Michaela [facility] Course: Discharge Diagnosis: New-onset Atrial fibrillation with RVR, currently converted back into NSR and maintaining sinus mechanism. Hypertension Left lower extremity pain, DVT ruled out Hospital Course: Patient is a very pleasant 43-year-old male with a past medical history of hypertension. He presented to the emergency department with a chief complaint of palpitations. Patient reports that he works nights and about 7:30 this morning he laid down to try to sleep but Feeling palpitations. Patient reports he tried to ignore this and finally did fall asleep but woke up around 10 AM again feeling severe palpitations accompanied by shortness of breath, dizziness, nausea, and diaphoresis. Patient reports he called his as he knew something was was not right and came to the emergency department per her instructions. Currently patient denies having any dizziness, lightheadedness, chest pain, shortness of breath, or experiencing any numbness/tingling/weakness/swelling in his extremities. Patient does report pain and left lower extremity femoral/groin region over the past few days. He denies any recent infections or exposure to known ill contacts. He denies any history of atrial fibrillation or previous cardiac history. He underwent full evaluation in the emergency department. Vital signs in the emergency department show heart rate elevated as high as 168 bpm, blood pressure 135/90, respiratory rate 18, temp 98.0F, SpO2 98% on room air. An EKG was completed showing atrial fibrillation with RVR at 161 bpm with T-wave inversion in inferior leads 2 and aVF. Chest x-ray completed negative for acute cardiopulmonary process. Labs completed and reviewed. CBC showing slightly elevated hemoglobin of 18.2 otherwise normal findings. Coagulation profile normal findings. BMP was unremarkable. Magnesium normal findings at 1.9. Liver profile normal findings. Troponin negative at less than 0.012. And TSH normal at 3.90. Patient was given Cardizem bolus and initiated on Cardizem infusion. He was admitted under our services with consultation to cardiology. We started patient on heparin infusion at this time, however [id number] score 1, once rate is controlled and/or patient converts to NSR and we will defer long-term anticoagulation decision to cardiology. Troponins trended overnight all negative at less than 0.023 draws. Patient was started on metoprolol 25 mg twice daily. Lisinopril head at this time his blood pressure has tended to run on the lower side. Left lower extremity Doppler was completed and was negative for DVT. Echocardiogram completed showing preserved EF of 50-55% with no significant structural or valvular abnormalities. Patient was evaluated by cardiology and started on oral anticoagulation with Eliquis and cleared from their perspective for discharge with outpatient follow-up in their office in 2 weeks. Medically, patient is stable for discharge at this time he is maintaining normal sinus mechanism and denies having any complaints. Patient to follow-up outpatient with PCP in 2-3 days and with cardiology in 2 weeks. Physical exam: Vital signs reviewed and stable. General: Nontoxic, no distress and appears stated age. Derm: Skin warm and dry, normal coloration for ethnicity. Head: Atraumatic, normocephalic and symmetric. Eyes: EOMs intact, no lid lag, and anicteric sclera Mouth: no lip lesions, mucus membranes moist Cardiovascular: Regular rate and regular rhythm, no murmur, positive posterior tibial pulses bilaterally, and cap refill < 2 seconds. Lungs: Respirations even, regular, and unlabored on room air. Lungs CTA bilaterally, no rhonchi, no rales, no wheezing, and no accessory muscle usage. Abdominal: soft, nontender to palpation, no guarding, no appreciable organomegaly Ext: ROM intact. No gross muscle atrophy, no edema, no contractures Neuro: Speech clear, face symmetrical and CN II-XII grossly intact with no noted focal neuro deficits Psych: Alert and oriented to person, place, time, and situation. Appropriate and pleasant affect. A total of 33 minutes of time were spent preparing this complex discharge summary. Pt was discharged on 08/05/23 at 12:31 PM. Patient was seen independently by Nurse Practitioner. This document was prepared using [employer] dictation software. Please allow for errors in platform mill supervisor while rare they do occur. Rashaad Sena NP rendered care for this patient independently, reviewed the findings and plan as documented in the note above. I did not physically speak with or examine the patient on this date. Patient Condition at Discharge: Stable Plan - Discharge Summary Discharge Rx Participant: Yes New Discharge Prescriptions: New Apixaban [Eliquis] 5 mg PO BID 30 Days #60 tab Metoprolol Tartrate [Lopressor] 25 mg PO BID 30 Days #60 tab Continue Turmeric Root Extract [Turmeric Curcumin] 500 mg PO DAILY PRN PRN Reason: Inflammation Gabapentin [Neurontin] 300 mg PO BID PRN PRN Reason: Pain Acetaminophen Tab [Tylenol] 1,000 mg PO Q6HR PRN PRN Reason: Pain Or Fever > 100.5 Discontinued lisinopriL [Zestril] 20 mg PO DAILY Discharge Medication List Acetaminophen Tab [Tylenol] 1,000 mg PO Q6HR PRN 08/04/23 [History] Gabapentin [Neurontin] 300 mg PO BID PRN 08/04/23 [History] Turmeric Root Extract [Turmeric Curcumin] 500 mg PO DAILY PRN 08/04/23 [History] Apixaban [Eliquis] 5 mg PO BID 30 Days #60 tab 08/05/23 [Rx] Metoprolol Tartrate [Lopressor] 25 mg PO BID 30 Days #60 tab 08/05/23 [Rx] Follow up Appointment(s)/Referral(s): Huy Alfredo MD [STAFF PHYSICIAN] - 1 Week (office will call with follow up appointment date and time) Michaela Moreira MD [Primary Care Provider] - 08/12/23 11:45 am Patient Instructions/Handouts: A-fib (Atrial Fibrillation) (DC), Heart Healthy Diet (DC), Meal Planning with Diabetes Exchanges (DC) Activity/Diet/Wound Care/Special Instructions: Activity: As tolerated. Take breaks as needed. Diet: Heart healthy and carb consistent diet. Avoid salts, or foods with hidden salts such as canned or boxed foods and frozen dinners. Extra salt makes your heart work harder and traps the fluid in your body for longer. Special Instructions: Take all of your medications as directed and remember to keep all of your doctor's appointments and follow-up as needed. You are also being discharged home on a blood thinner, Eliquis. This is very important to take daily as directed until otherwise advised by your bookbinding machine operator-Dr. Alfredo. Being that you are being placed on a blood thinner it is very important to watch for any signs of bleeding and notify your doctor immediately if you notice any bleeding. It is also important to remove any trip hazards such as rugs or loose extension cords from your home to prevent unnecessary falls and if you do experience a fall or head injury, it is extremely important to be evaluated by a medical provider immediately to ensure no internal bleeding. Thank you for allowing us to participate in your care, it was truly a pleasure having you for our patient!!! Discharge/Stand Alone Forms: Work/School Release / Restrict Discharge Disposition: HOME SELF-CARE
== END 2023-08-05 13:29 | disposition home or self-care (01) ==
LOC: EC 10:33 → 3SCARD 13:36
PROVIDERS: ADMIT Internal Medicine; ATTEND Internal Medicine
DX: I48.91 Unspecified atrial fibrillation (principal); I10 Essential (primary) hypertension; M79.605 Pain in left leg; Z79.899 Other long term (current) drug therapy; Z88.6 Allergy status to analgesic agent; Z88.0 Allergy status to penicillin; Z98.890 Other specified postprocedural states
CPT/HCPCS: 96366 ×3; 96376; 96368; 96365; 96367; 99291; 36415; 93005; 93306; 80053; 84443; 83735; 84484; 85025; 85610 ×2; 85730 ×2; 71046; 93971; G0378 ×2; J1644 ×2